=== PATIENT | male | born 1975 | race Caucasian/White ===

== ENCOUNTER → 2017-06-29 14:30 | Outpatient (CLI) | payer OTHER, SELFPAY ==
[2017-06-29 15:57] LABS: International Normalized Ratio 1.1; Prothrombin Time (Protime)PT. 14.3 SECONDS (11.7-14.9)
[2017-06-29 15:58] LABS: Partial Thromboplast Time 31.7 Seconds (24.1-36.2)
[2017-07-03 03:07] LABS: Comment 1a (.)
[2017-07-03 11:04] LABS: AFP, Tumor Marker 3.4 ng/mL (0.0-8.3); Hepatitis C Genotype 1a
== END ==
LOC: MTLAB 14:36
PROVIDERS: Family Provider Family Medicine; PCP Family Medicine; Visit Provider Internal Medicine Gastroenterology
DX: B18.2 Chronic viral hepatitis C (principal)
CPT/HCPCS: 36415; 82105; 85610; 85730; 87902

== ENCOUNTER → 2017-09-07 13:49 | Outpatient (CLI) | payer OTHER, SELFPAY ==
[2017-09-11 07:53] LABS: HEPATITIS B SURFACE AG Negative (Negative)
== END ==
LOC: LAB.FUTURE 13:52
PROVIDERS: Family Provider Family Medicine; PCP Family Medicine; Visit Provider Internal Medicine Gastroenterology
DX: B19.20 Unspecified viral hepatitis C without hepatic coma (principal)
CPT/HCPCS: 36415; 87340

== ENCOUNTER → 2018-02-25 14:39 | Outpatient (CLI) | payer OTHER, SELFPAY ==
[2018-03-01 03:06] LABS: HCV Quant. RNA PCR HCV Not Detected IU/mL (.)
== END ==
PROVIDERS: Family Provider Family Medicine; PCP Family Medicine; Referring Provider Internal Medicine Gastroenterology; Visit Provider Internal Medicine Gastroenterology
DX: B19.20 Unspecified viral hepatitis C without hepatic coma (principal)
CPT/HCPCS: 36415; 87522